=== PATIENT | male | born 1975 | race Caucasian/White ===

== ENCOUNTER → 2018-01-01 | Outpatient (CLI) | payer BC ==
--- NOTE | 2018-01-01 12:11 | US ---
EXAMINATION TYPE: US venous doppler duplex LE LT DATE OF EXAM: 01/01/2018 11:54 AM COMPARISON: US dated 11/01/2017 CLINICAL HISTORY: R60.0 edema of calf. SIDE PERFORMED: Left TECHNIQUE: The lower extremity deep venous system is examined utilizing real time linear array sonog angela with graded compression, doppler sonography and color-flow sonography. VESSELS IMAGED: External Iliac Vein (EIV) Common Femoral Vein Deep Femoral Vein Greater Saphenous Vein * Femoral Vein Popliteal Vein Proximal Calf Veins (* superficial vessels) Left Leg: Negative for DVT IMPRESSION: 1. Left lower extremity ultrasound negative for deep venous thrombosis
== END | disposition home or self-care (01) ==
LOC: RADUSWWP 11:22
PROVIDERS: ATTEND Family Medicine
DX: R60.0 Localized edema (principal)

== ENCOUNTER 2021-04-04 09:37 | Day surgery (SDC) | payer BC, OTHER ==
[2021-04-03 10:56] VITALS: BMI 29.1
[~2021-04-04 09:37] MED LIST: LACTATED RINGERS 1,000 ML IV SCH; LIDOCAINE 1% (10MG/ML) FOR IV START INTRADERMA PRN
[2021-04-04] MEDS ORDERED: ONDANSETRON 4 MG/2 ML VIAL ONE (09:58)
[2021-04-04 10:00] VITALS: RESP 16; TEMP 97.6
[2021-04-04] MEDS ORDERED: PROPOFOL 10 MG/ML 20 ML VIAL IV ONE (10:15)
--- NOTE | 2021-04-04 10:45 | P.PCN ---
Date of Procedure: 04/04/21 Description of Procedure: BRIEF HISTORY: Patient is a 46-year-old male presenting for outpatient colonoscopy for history of colon polyps. Patient reports last colonoscopy approximately 10 years ago. No change in bowel habits or blood per rectum. Unknown family history is a patient was adopted. PROCEDURE PERFORMED: Colonoscopy with polypectomy. PREOPERATIVE DIAGNOSIS: History of colon polyps, last colonoscopy 10 years ago. ESTIMATED BLOOD LOSS: Minimal. IV sedation per Anesthesia. PROCEDURE: After informed consent was obtained, the patient, was brought into the endoscopy unit. IV sedation was administered by Anesthesia under continuous monitoring. Digital rectal examination was normal. Initially the Olympus CF-190 flexible video colonoscope was then inserted in the rectum, gradually advanced into the cecum without any difficulty. Careful examination was performed as the scope was gradually being withdrawn. Ileocecal valve and the appendiceal orifice were visualized and appeared normal. Prep was excellent. Mucosa of the cecum, ascending colon, transverse colon, descending colon, sigmoid colon, and rectum appeared normal. 2 diminutive polyps removed with cold forcep polypectomy measuring 1-2 mm in size from the descending colon and sigmoid colon. Sessile rectal polyp measuring 4 mm removed with cold snare polypectomy. Retroflexion was performed in the rectum and no lesions were seen. The patient tolerated the procedure well. IMPRESSION: 2 diminutive polyps removed with cold forcep polypectomy from the descending colon and sigmoid colon. Sessile rectal polyp removed with cold snare polypectomy. RECOMMENDATIONS: Findings of this examination were discussed with the patient and his family. Okay to resume diet. Okay to resume medications. Await pathology from polypectomy. Recommend repeat colonoscopy in 5 years given history of colon polyps and polypectomy pending pathology from polypectomies.
[2021-04-04 11:00] VITALS: BP 116/81; PULSE 87
== END 2021-04-04 11:12 | disposition home or self-care (01) ==
LOC: ORWHC2ENDO 09:37
PROVIDERS: ATTEND Internal Medicine
DX: D12.4 Benign neoplasm of descending colon (principal); D12.5 Benign neoplasm of sigmoid colon; K62.1 Rectal polyp; F17.200 Nicotine dependence, unspecified, uncomplicated; Z87.19 Personal history of other diseases of the digestive system
CPT/HCPCS: 88305; 45380; 45385; J2405; J2704

== ENCOUNTER → 2022-10-13 | Outpatient (CLI) | payer BC ==
--- NOTE | 2022-10-14 14:05 | MR ---
EXAMINATION TYPE: MR lumbar spine wo con DATE OF EXAM: 10/13/2022 5:05 PM COMPARISON: Spine radiographs 08/11/2022. CLINICAL INDICATION:Male, 47 years old with history of M47.26 SPONDYLOSIS WITH RADICULOPATHY, LUMBAR JULY; TECHNIQUE: Multi planar, multi sequence imaging was performed utilizing: T1-weighted, T2-weighted, a nd turbo inversion recovery imaging of the lumbar spine. IV Contrast:. None. FINDINGS: Alignment: The lumbar vertebral bodies have preserved heights and alignment. Cord: The conus medullaris and the distal spinal cord appear unremarkable with regards to their signa l intensity and morphology. Bones/Discs: Mild disc degeneration changes with osteophyte formation. L4-L5 disc desiccation is pres ent. Increased inversion recovery signal is seen within the right L4 and L5 pedicles. T12-L1: No evidence of significant spinal canal stenosis or neural foraminal stenosis. L1-L2: No evidence of significant spinal canal stenosis or neural foraminal stenosis. L2-L3: No evidence of significant spinal canal stenosis or neural foraminal stenosis. L3-L4: No evidence of significant spinal canal stenosis or neural foraminal stenosis. L4-L5: Disc bulge and facet joint arthropathy result in mild spinal canal and moderate bilateral neur al foraminal stenosis. L5-S1: The disc is rounded posterior morphology without significant spinal canal stenosis. Facet join t arthropathy with mild neural foraminal stenosis. Other findings: None. IMPRESSION: 1. No definitive evidence of disc herniation or significant spinal canal stenosis. 2. Multilevel disc degeneration with associated osteoarthritic changes is L4-L5 with moderate bilate ral neural foraminal stenosis. 3. Stress reaction/bony edema of the right L4-L5 pedicles. No evidence of fracture.
== END | disposition home or self-care (01) ==
LOC: RADMRIMAIN 16:37
PROVIDERS: ATTEND Nurse Practitioner Family
DX: M51.16 Intervertebral disc disorders with radiculopathy, lumbar region (principal); M47.26 Other spondylosis with radiculopathy, lumbar region; M99.73 Connective tissue and disc stenosis of intervertebral foramina of lumbar region; R60.0 Localized edema; F43.9 Reaction to severe stress, unspecified
CPT/HCPCS: 72148

== ENCOUNTER 2022-12-11 07:03 | Day surgery (SDC) | payer BC ==
[2022-12-09 08:45] VITALS: BMI 29.1
[2022-12-11] MEDS ORDERED: LACTATED RINGERS 1,000 ML IV ONE (07:30)
[2022-12-11 07:32] VITALS: RESP 16; TEMP 97
[2022-12-11] MEDS ORDERED: MIDAZOLAM 2 MG/2 ML VIAL ONE (07:34)
[2022-12-11] MEDS ORDERED: methylPREDNISolone ACETATE 80 MG/ML 1 ML VIAL ONE (07:34)
[2022-12-11] MEDS ORDERED: IOPAMIDOL M200 10 ML VIAL ONE (07:34)
[2022-12-11] MEDS ORDERED: fentaNYL (PF) 50 MCG/ML 2 ML AMP ONE (07:34)
--- NOTE | 2022-12-11 07:43 | P.PCN ---
Date of Procedure: 12/11/22 Procedure(s) Performed: PREOPERATIVE DIAGNOSIS: 1- Lumbar Degenerative Disc Diseases 2-lumbar spinal stenosis POSTOPERATIVE DIAGNOSIS: Same as preop diagnosis. PROCEDURE 1. Lumbar epidural steroid injection under fluoroscopic guidance at the L4-5 level. (Fluoroscopy imaging was available in radiology department) 2. Lumbar epidurogram. ANESTHESIA: moderate sedation with intravenous Versed 2 mg ,and fentanyle 100 Mcg Sedation start time : 737 Sedation end time : 741 EBL: Minimal PROCEDURE INDICATION: The patient with low back pain and radiculitis symptoms unresponsive to conservative treatment. Fluoroscopy was used to optimize visualization of the needle placement and to maximize safety. PROCEDURE DESCRIPTION / TECHNIQUE: The patient was seen and identified in the preoperative area. Risks, benefits, complications including but not limited to infections ,bleeding ,allergic reaction to the medications ,nerve damage and not complete pain releife , and alternatives were discussed with the patient. The patient agreed to proceed with the procedure and signed the consent. IV was started, and vital signs were stable. Patient was taken to the OR and time out was completed. The patient was placed in the prone position on procedure table and a pillow was placed under the abdomen to reduce lumbar lordosis. The lumbosacral area was prepped and draped in the usual sterile fashion.ere closely monitored during the procedure. Conscious sedation was used during the procedure to decrease patients anxiety. Vital signs was monitered during the entire procedure. Using anterior-posterior fluoroscopy, the L4-5 interlaminar space was identified and the skin over this site was marked and then infiltrated with 1% lidocaine subcutaneously. Subsequently, a 20-gauge Tuohy epidural needle was inserted and advanced toward the epidural space using the ``Loss of resistance technique and guided by AP and lateral fluoroscopy. The correct needle position in the epidural space was verified with the injection of 2 mL of the water soluble contrast dye Isovue 200 contrast and observing an excellent epidurogram with the epidural spread of the dye, after negative aspiration for blood and CSF and in the absence of paresthesias. Again after negative aspiration, a 6 ml mixture containing 80 mg of Depo-medrol ( Preservetive Free ), and 2 ml of preservative free Normal Saline, and 2 ml of preservative free lidocaine 1% solution was injected and a washout of epidurogram was seen. Needle was withdrawn intact, skin was cleansed, and bandages were applied. COMPLICATIONS: None DISPOSITION / PLANS: The patient was placed in a supine position and transferred to the recovery area in a stable condition for observation. There was no evidence of lower extremity motor or sensory deficit after the procedure. Patient was discharged from the recovery room after meeting discharge criteria. Home discharge instructions were given to the patient by the staff. The patient was reexamined prior to discharge. The patient will schedule a follow up in the clinic in 2-4 weeks.
[2022-12-11] MEDS ORDERED: IV FLUID CONTINUATION 1,000 ML IV ONE (07:47)
[2022-12-11 08:15] VITALS: BP 100/68; PULSE 86
--- NOTE | 2022-12-11 08:19 | FL ---
Intraoperative/procedural fluoroscopic services were provided. Total fluoroscopy time is 1.7 seconds with a total of 1 submitted images to PACS. Please see the operative/procedural note for further deta ils. DAP: [id number]
== END 2022-12-11 08:16 | disposition home or self-care (01) ==
LOC: ORPAIN 07:03
PROVIDERS: ATTEND Specialist
DX: M51.16 Intervertebral disc disorders with radiculopathy, lumbar region (principal); M48.061 Spinal stenosis, lumbar region without neurogenic claudication; Z88.8 Allergy status to other drugs, medicaments and biological substances
CPT/HCPCS: 62323; J2250; J1040; J3010; Q9966

== ENCOUNTER → 2023-01-05 | Outpatient (CLI) | payer BC ==
[2023-01-05 14:56] VITALS: BP 144/87; PULSE 87; RESP 18; TEMP 98.7
--- NOTE | 2023-01-05 16:30 | P.PAINPG ---
PQRS Measure Charge Sheet Comment: A 47 yr old male with a history of severe and chronic LBP secondary to lumbar DDD and spondylosis with facet arthropathy without myelopathy presents today for evaluation s/p LESI. 90% pain relief x 2 wks s/p procedure. Pain level is provoked at 7 /10 in intensity, constant, localized in the lumbar spine, sharp in character w shooting towards . Pain is provoked by over activity Pain is alleviated with PT x 6 wks in Sep 2022, injections, laying supine, repositioning and rest. Interventional pain procedures completed include DIONNE L4-L5 Patient is currently on DENIES Patient denies any side effects of the medication(s), denies excessive drowsiness or sleepiness, denies suicidal ideation and reports that the current pain medication is helping to control the pain and improve activities of daily living. Patient denies any motor or sensory deficits. Patient denies any fever or night sweats, denies any change in the bowel movements or urination. Physical Examination: -Constitutional: Cooperative. Not in acute distress . - Neurologic: Cranial nerve II to XII intact. No focal neurological deficits. - Psychatric: Alert & oriented x 3. Matching mood & appropriate affect. Judgment and insight intact. - Musculoskeletal: Cervical spine: Muscle bulk/ tone/ strength in the bilateral upper extremities normal Vertebral body tenderness to palpation over Spurling test positive Distraction test positive Facet loading test positive TTP Thoracic spine Muscle bulk / tone/ strength in the bilateral paraspinal muscles normal Vertebral body tender to palpation over Facet loading test positive TTP Lumbar spine: Motor bulk/ tone/ strength lower extremities , thigh and legs : 5/5 Deep tendon reflexes : Normal Knee Jerk. Normal Ankle Jerk . Vertebral body tenderness to palpation over L5 Lumbar Facet Loading Test positive Straight Leg Raise: positive at 30 degrees right side/ left side Gaenslen's Test positive Sacral spine : Severe tenderness over the Sacroiliac joint: right side / left side Range of motion: Flexion of the lumbar spine <60 degrees Range of motion: Extension of the lumbar spine <20 degrees Gaenslen's Test positive right side / left side Dao test: positive right side / left side Thigh Thrust Test positive right side / left side Sacral Thrust Test positive right side / left side Assessment and plan: Chronic LBP secondary to lumbar DDD, spondylosis with facet arthropathy without myelopathy Recommendation of R paramedian DIONNE L5-S1 #2. May need a series of injections for optimal pain relief. Risks, benefits of procedure discussed and pt verbalized understanding. Admits to anticoagulant use or medical history of diabetes. Protocol for discontinuation/ continuation of medications pauline procedure discussed. All questions answered. I have spent less than 30 minutes on patient care today. Dr Flores was available by phone for the evaluation of this patient. The time was used to rev iew the medical records including relevant urine studies and Prescription history (MAPs), review of the available imaging, evaluation and examination of the patient, coordination of care with the medical staff and if applicable referring physicians, as well as creation of the medical record PQRS Narrative: Smoking Status Current every day smoker Hx Alcohol Use (MH) Yes: Social Home Medications: Ambulatory Orders No Known Home Medications 12/09/22 Controlled Substance Measures - Controlled Substance Measures Is patient prescribed a controlled substance at discharge?: No
== END ==
LOC: PNWHC3 14:16
PROVIDERS: ATTEND Specialist
DX: M51.36 Other intervertebral disc degeneration, lumbar region (principal); M47.816 Spondylosis without myelopathy or radiculopathy, lumbar region; G89.29 Other chronic pain; F17.200 Nicotine dependence, unspecified, uncomplicated; Z88.8 Allergy status to other drugs, medicaments and biological substances
CPT/HCPCS: 99211

== ENCOUNTER 2023-01-27 07:03 | Day surgery (SDC) | payer BC ==
[2023-01-23 11:30] VITALS: BMI 29.1
[2023-01-27 07:15] VITALS: TEMP 97.7
[2023-01-27] MEDS: LACTATED RINGERS 1,000 ML IV SCH ×2 (07:29→07:30)
[2023-01-27] MEDS ORDERED: IOPAMIDOL M200 10 ML VIAL ONE (07:31)
[2023-01-27] MEDS ORDERED: fentaNYL (PF) 50 MCG/ML 2 ML AMP ONE (07:31)
[2023-01-27] MEDS ORDERED: MIDAZOLAM 2 MG/2 ML VIAL ONE (07:31)
[2023-01-27] MEDS ORDERED: methylPREDNISolone ACETATE 40 MG/ML 1 ML VIAL ONE (07:31)
--- NOTE | 2023-01-27 07:38 | P.PCN ---
Date of Procedure: 01/27/23 Operative Findings: PREOPERATIVE DIAGNOSIS: lumbar radiculopathy POSTOPERATIVE DIAGNOSIS: Lumbar radiculopathy PROCEDURE 1. Lumbar epidural steroid injection under fluoroscopic guidance at the 5/1 level. 2. Lumbar epidurogram. Imaging: Fluoroscopy was used, images where saved to the medical record ANESTHESIA: Medication Administered by: Nurse Sedation Type: Moderate sedation Sedation Supervision start time: 731 Sedation Supervision end time: 736 EBL: Minimal PROCEDURE INDICATION: The patient with low back pain and radiculitis symptoms unresponsive to conservative treatment. Fluoroscopy was used to optimize visualization of the needle placement and to maximize safety. PROCEDURE DESCRIPTION / TECHNIQUE: The patient was seen and identified in the preoperative area. Risks, benefits, complications including but not limited to infections, bleeding, allergic reaction to medications, nerve damage and incomplete pain relief, as well as alternatives to the procedure were discussed with the patient. The patient agreed to proceed with the procedure and signed the consent. IV was started if indicated above, and vital signs were stable. Patient was taken to the OR and time out was completed. The patient was placed in the prone position on procedure table and a pillow was placed under the abdomen to reduce lumbar lordosis. The lumbosacral area was prepped and draped in the usual sterile fashion. Vitals were closely monitored during the procedure. Using anterior-posterior fluoroscopy, the 5/1 interlaminar space was identified and the skin over this site was marked and then infiltrated with 1% lidocaine subcutaneously. Subsequently, a 20-gauge Tuohy epidural needle was inserted and advanced toward the epidural space using the Loss of resistance technique and guided by AP and lateral fluoroscopy. The correct needle position in the epidural space was verified with the injection of 1 mL of Omnipaque 180 contrast to observe an acceptable epidurogram, after negative aspiration for blood and CSF and in the absence of paresthesias. Again after negative aspiration, a 3 ml mixture containing 40mg of depomedrol and 2 ml of preser vative free Normal Saline was injected and a washout of epidurogram was seen. Needle was withdrawn intact, skin was cleansed, and bandages were applied. COMPLICATIONS: None DISPOSITION / PLANS: The patient was placed in a supine position and transferred to the recovery area in a stable condition for observation. There was no evidence of lower extremity motor or sensory deficit after the procedure. Patient was discharged from the recovery room after meeting discharge criteria. Home discharge instructions were given to the patient by the staff. The patient was reexamined prior to discharge. The patient will follow up as directed.
[2023-01-27] MEDS ORDERED: IV FLUID CONTINUATION 800 ML IV ONE (07:41)
[2023-01-27 07:49] VITALS: RESP 16
[2023-01-27 08:27] VITALS: BP 104/57; PULSE 84
--- NOTE | 2023-01-27 08:27 | FL ---
EXAMINATION TYPE: FL guided pain mgmt statistic DATE OF EXAM: 01/27/2023 HISTORY: Fluoroscopy time Total dose area product (DAP) in mGy*cm? (or similar): 0.33563 IMPRESSION: 1. Fluoroscopy time.
== END 2023-01-27 08:35 | disposition home or self-care (01) ==
LOC: ORPAIN 07:03
PROVIDERS: ATTEND Hospitalist
DX: M54.16 Radiculopathy, lumbar region (principal)
CPT/HCPCS: 62323; J2250; J1030; J3010; Q9966

== ENCOUNTER → 2023-02-18 | Outpatient (CLI) | payer BC ==
[2023-02-18 14:31] VITALS: BP 110/79; PULSE 92; RESP 18; TEMP 98
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
== END ==
LOC: PNWHC3 14:01
PROVIDERS: ATTEND Specialist
DX: M51.37 Other intervertebral disc degeneration, lumbosacral region (principal); M47.817 Spondylosis without myelopathy or radiculopathy, lumbosacral region; G89.29 Other chronic pain; F17.200 Nicotine dependence, unspecified, uncomplicated; Z88.8 Allergy status to other drugs, medicaments and biological substances
CPT/HCPCS: 99211

== ENCOUNTER 2023-03-19 06:26 | Day surgery (SDC) | payer BC ==
[2023-03-16 08:20] VITALS: BMI 29.1
[2023-03-19] MEDS ORDERED: LACTATED RINGERS 1,000 ML IV SCH (06:57)
[2023-03-19 07:05] VITALS: TEMP 96.9
--- NOTE | 2023-03-19 07:33 | P.PCN ---
Date of Procedure: 03/19/23 Procedure(s) Performed: PREOPERATIVE DIAGNOSIS: 1- Lumbar Degenerative Disc Diseases 2-lumbar spinal stenosis POSTOPERATIVE DIAGNOSIS: Same as preop diagnosis. PROCEDURE 1. Lumbar epidural steroid injection under fluoroscopic guidance at the L4-5 level. (Fluoroscopy imaging was available in radiology department) 2. Lumbar epidurogram. ANESTHESIA: Local anesthesia with lidocaine 1% 3 mL only EBL: Minimal PROCEDURE INDICATION: The patient with low back pain and radiculitis symptoms unresponsive to conservative treatment. Fluoroscopy was used to optimize visualization of the needle placement and to maximize safety. PROCEDURE DESCRIPTION / TECHNIQUE: The patient was seen and identified in the preoperative area. Risks, benefits, complications including but not limited to infections ,bleeding ,allergic reaction to the medications ,nerve damage and not complete pain releife , and alternatives were discussed with the patient. The patient agreed to proceed with the procedure and signed the consent. IV was started, and vital signs were stable. Patient was taken to the OR and time out was completed. The patient was placed in the prone position on procedure table and a pillow was placed under the abdomen to reduce lumbar lordosis. The lumbosacral area was prepped and draped in the usual sterile fashion.ere closely monitored during the procedure.. Vital signs was monitered during the entire procedure. Using anterior-posterior fluoroscopy, the L4-5 interlaminar space was identified and the skin over this site was marked and then infiltrated with 1% lidocaine subcutaneously. Subsequently, a 20-gauge Tuohy epidural needle was inserted and advanced toward the epidural space using the ``Loss of resistance technique and guided by AP and lateral fluoroscopy. The correct needle position in the epidural space was verified with the injection of 2 mL of the water soluble contrast dye Isovue 200 contrast and observing an excellent epidurogram with the epidural spread of the dye, after negative aspiration for blood and CSF and in the absence of paresthesias. Again after negative aspiration, a 6 ml mixture containing 80 mg of Depo-medrol ( Preservetive Free ), and 2 ml of preservative free Normal Saline, and 2 ml of preservative free lidocaine 1% solution was injected and a washout of epidurogram was seen. Needle was withdrawn intact, skin was cleansed, and bandages were applied. COMPLICATIONS: None DISPOSITION / PLANS: The patient was placed in a supine position and transferred to the recovery area in a stable condition for observation. There was no evidence of lower extremity motor or sensory deficit after the procedure. Patient was discharged from the recovery room after meeting discharge criteria. Home discharge instructions were given to the patient by the staff. The patient was reexamined prior to discharge. The patient will schedule a follow up in the clinic in 2-4 weeks.
[2023-03-19 07:40] VITALS: RESP 16
[2023-03-19 08:00] VITALS: BP 114/77; PULSE 74
--- NOTE | 2023-03-19 08:40 | FL ---
EXAMINATION TYPE: FL guided pain mgmt statistic DATE OF EXAM: 03/19/2023 HISTORY: Fluoroscopy time Total dose area product (DAP) in uGy*m?, mGy*cm? (or similar): 0.01576 IMPRESSION: 1. Fluoroscopy time.
[2023-03-19] MEDS ORDERED: IOPAMIDOL M200 10 ML VIAL ONE (17:27)
[2023-03-19] MEDS ORDERED: methylPREDNISolone ACETATE 80 MG/ML 1 ML VIAL ONE (17:27)
== END 2023-03-19 08:05 | disposition home or self-care (01) ==
LOC: ORPAIN 06:26
PROVIDERS: ATTEND Specialist
DX: M51.16 Intervertebral disc disorders with radiculopathy, lumbar region (principal); M48.061 Spinal stenosis, lumbar region without neurogenic claudication; Z88.8 Allergy status to other drugs, medicaments and biological substances
CPT/HCPCS: 62323; J1040; Q9966

== ENCOUNTER → 2023-04-15 | Outpatient (CLI) | payer BC ==
[2023-04-15 14:21] VITALS: BP 161/99; PULSE 78; RESP 14; TEMP 98.1
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
== END ==
LOC: PNWHC3 13:42
PROVIDERS: ATTEND Specialist
DX: M51.37 Other intervertebral disc degeneration, lumbosacral region (principal); M47.817 Spondylosis without myelopathy or radiculopathy, lumbosacral region; F17.200 Nicotine dependence, unspecified, uncomplicated; G89.29 Other chronic pain; Z88.8 Allergy status to other drugs, medicaments and biological substances
CPT/HCPCS: 99211

== ENCOUNTER 2023-04-28 06:34 | Day surgery (SDC) | payer BC ==
[2023-04-23 09:34] VITALS: BMI 29.1
[2023-04-28 06:55] VITALS: TEMP 97.9
[2023-04-28] MEDS ORDERED: ROPIVACAINE 5 MG/ML 20 ML AMPULE ONE (07:12)
[2023-04-28] MEDS ORDERED: fentaNYL (PF) 50 MCG/ML 2 ML AMP ONE (07:12)
[2023-04-28] MEDS ORDERED: methylPREDNISolone ACETATE 40 MG/ML 1 ML VIAL ONE (07:12)
[2023-04-28] MEDS ORDERED: MIDAZOLAM 2 MG/2 ML VIAL ONE (07:12)
--- NOTE | 2023-04-28 07:26 | P.PCN ---
Date of Procedure: 04/28/23 Procedure(s) Performed: PREOPERATIVE DIAGNOSIS : 1- Lumbar spondylosis with Facet Arthropathy without myelopathy . 2- Lumber degenerative disc disease POSTOPERATIVE DIAGNOSIS: 1- Lumbar spondylosis with Facet Arthropathy without myelopathy . 2- Lumber degenerative disc disease PROCEDURE: Diagnostic bilateral L3 , L4 , and L5 medial branch block under fluoroscopy guidance(fluoroscopy images available in the radiology Department ) ( To target the facet joint between Bilateral L4-5 , and L5-S1 )#1st ANESTHESIA:moderate sedation with intravenous Versed 2 mg and Fentanyl 50 mcg. Sedation started 0 712, end at 0724 EBL: Minimal COMPLICATION: None PROCEDURE INDICATION: Chronic low back pain secondary to Facet arthropathy unresponsive to conservative treatment. PROCEDURE DESCRIPTION: the patient was seen and identified in the preop holding area , risks and benefits and possible complications of the procedure and alternative were discussed with the patient, and the patient agreed to proceed with the procedure and signed the consent and vital signs monitored during the procedure and fluoroscopy was used to maximize the benefit and accuracy of the needle placement, and sedation was given to decrease patient anxiety, patient was taken to the procedure room and placed in prone position vital signs monitored in the back prepped with chlorhexidine X3 then under strict sterile technique using a right oblique fluoroscopy ,the junction of the transverse process and the superior articulating process of the right L3 , L4 , and L5 vertebra which corresponding to the fluoroscopy image of the eye of the Thor dog on the block side for the medial branches and subsequently , after local infiltration of skin and subcu tissuies with Ropivacaine 0.5 % , one mL at each level ,then 22-gauge Quincke-type needles , 3 needle was used , each one of them placed at the junction of the base of the transverse process and the superior articular process at the appropriate level, and the needle was advanced until the periosteum contacted, needle placement confirmed with AP oblique and lateral view and after appropriate needle placement confirmed, and after negati ve aspiration for heme and CSF and there was no paresthesia 1-1/2 mL of Ropivacaine 0.5% mixed with 20 mg Depo-Medrol , then half mL injected at each level after negative aspiration the needle subsequently removed and the same procedure repeated for the left side at left side at L3 , L4 and L5 levels. At the end of the procedure and the needles removed and a bandage applied after the skin was cleaned the cleaning solution patient taken to recovery room in stable condition and monitors in the recovery room for 20-30 minutes and discharged home in stable condition after discharge criteria met and patient will follow up with the pain clinic in 2-4 weeks
[2023-04-28] MEDS ORDERED: IV FLUID CONTINUATION 1,000 ML IV ONE ×2 (07:29)
[2023-04-28 07:33] VITALS: RESP 16
[2023-04-28 07:45] VITALS: BP 96/69; PULSE 77
--- NOTE | 2023-04-28 16:31 | FL ---
Intraoperative/procedural fluoroscopic services were provided for bilateral lumbar facet block. Total fluoroscopy time is 10.3 seconds with a total of 4 submitted images to PACS. Total DAP 0.38915 mGym2 . Please see the operative note for further details.
== END 2023-04-28 08:05 | disposition home or self-care (01) ==
LOC: ORPAIN 06:34
PROVIDERS: ATTEND Specialist
DX: M51.36 Other intervertebral disc degeneration, lumbar region (principal); M47.816 Spondylosis without myelopathy or radiculopathy, lumbar region; G89.29 Other chronic pain
CPT/HCPCS: 64493; 64494 ×2; J2250; J1030; J3010; J2795

== ENCOUNTER → 2023-05-21 | Outpatient (CLI) | payer BC ==
[2023-05-21 14:33] VITALS: BP 135/83; PULSE 81; RESP 16; TEMP 98.4
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
== END ==
LOC: PNWHC3 13:43
PROVIDERS: ATTEND Specialist
DX: M51.37 Other intervertebral disc degeneration, lumbosacral region (principal); M47.817 Spondylosis without myelopathy or radiculopathy, lumbosacral region; G89.29 Other chronic pain; F17.200 Nicotine dependence, unspecified, uncomplicated; Z88.8 Allergy status to other drugs, medicaments and biological substances
CPT/HCPCS: 99211

== ENCOUNTER 2023-06-05 08:58 | Day surgery (SDC) | payer BC ==
[2023-06-04 11:39] VITALS: BMI 28.0
[2023-06-05] MEDS ORDERED: LACTATED RINGERS 1,000 ML IV SCH (09:18)
[2023-06-05 09:25] VITALS: TEMP 97
[2023-06-05] MEDS ORDERED: fentaNYL (PF) 50 MCG/ML 2 ML AMP ONE (09:26)
[2023-06-05] MEDS ORDERED: MIDAZOLAM 2 MG/2 ML VIAL ONE (09:26)
[2023-06-05] MEDS ORDERED: methylPREDNISolone ACETATE 40 MG/ML 1 ML VIAL ONE (09:31)
[2023-06-05] MEDS ORDERED: ROPIVACAINE 5MG/ML 20ML VIAL ONE (09:31)
--- NOTE | 2023-06-05 09:43 | P.PCN ---
Date of Procedure: 06/05/23 Procedure(s) Performed: PREOPERATIVE DIAGNOSIS : 1- Lumbar spondylosis with Facet Arthropathy without myelopathy . 2- Lumber degenerative disc disease POSTOPERATIVE DIAGNOSIS: 1- Lumbar spondylosis with Facet Arthropathy without myelopathy . 2- Lumber degenerative disc disease PROCEDURE: Diagnostic bilateral L3 , L4 , and L5 medial branch block under fluoroscopy guidance(fluoroscopy images available in the radiology Department ) ( To target the facet joint between Bilateral L4-5 , and L5-S1 )#2nd ANESTHESIA: Monitored anesthesia care as per anesthesia department. EBL: Minimal COMPLICATION: None PROCEDURE INDICATION: Chronic low back pain secondary to Facet arthropathy unresponsive to conservative treatment. PROCEDURE DESCRIPTION: the patient was seen and identified in the preop holding area , risks and benefits and possible complications of the procedure and alternative were discussed with the patient, and the patient agreed to proceed with the procedure and signed the consent and vital signs monitored during the procedure and fluoroscopy was used to maximize the benefit and accuracy of the needle placement, and sedation was given to decrease patient anxiety, patient was taken to the procedure room and placed in prone position vital signs monitored in the back prepped with chlorhexidine X3 then under strict sterile technique using a right oblique fluoroscopy ,the junction of the transverse process and the superior articulating process of the right L3 , L4 , and L5 vertebra which corresponding to the fluoroscopy image of the eye of the Thor dog on the block side for the medial branches and subsequently , after local infiltration of skin and subcu tissuies with Ropivacaine 0.5 % , one mL at each level ,then 22-gauge Quincke-type needles , 3 needle was used , each one of them placed at the junction of the base of the transverse process and the superior articular process at the appropriate level, and the needle was advanced until the periosteum contacted, needle placement confirmed with AP oblique and lateral view and after appropriate needle placement confirmed, and after negative aspiration for heme and CSF and there was no paresthesia 1-1/2 mL of Ropivacaine 0.5% mixed with 20 mg Depo-Medrol , then half mL injected at each level after negative aspiration the needle subsequently removed and the same procedure repeated for the left side at left side at L3 , L4 and L5 levels. At the end of the procedure and the needles removed and a bandage applied after the skin was cleaned the cleaning solution patient taken to recovery room in stable condition and monitors in the recovery room for 20-30 minutes and discharged home in stable condition after discharge criteria met and patient will follow up with the pain clinic in 2-4 weeks
[2023-06-05] MEDS ORDERED: LACTATED RINGERS 1,000 ML IV ONE (09:45)
[2023-06-05 09:56] VITALS: RESP 17
[2023-06-05 10:09] VITALS: BP 108/73; PULSE 78
--- NOTE | 2023-06-05 10:25 | FL ---
Intraoperative/procedural fluoroscopic services were provided for bilateral lumbar facet block. Total fluoroscopy time is 9.1 seconds with a total of 4 submitted images to PACS. Total DAP 0.39783 mGym2. Please see the operative note for further details.
== END 2023-06-05 10:15 | disposition home or self-care (01) ==
LOC: ORPAIN 08:58
PROVIDERS: ATTEND Specialist
DX: M51.36 Other intervertebral disc degeneration, lumbar region (principal); M47.816 Spondylosis without myelopathy or radiculopathy, lumbar region; G89.29 Other chronic pain; Z87.891 Personal history of nicotine dependence
CPT/HCPCS: 64493; 64494 ×2; J2250; J1030; J3010; J2795

== ENCOUNTER 2023-07-17 06:11 | Day surgery (SDC) | payer BC ==
[2023-07-15 11:05] VITALS: BMI 29.1
[2023-07-17] MEDS ORDERED: LIDOCAINE 1% (10MG/ML) FOR IV START INTRADERMA PRN (06:19)
[2023-07-17] MEDS ORDERED: LACTATED RINGERS 1,000 ML IV SCH ×2 (06:19)
[2023-07-17 06:48] VITALS: TEMP 96.9
[2023-07-17] MEDS ORDERED: MIDAZOLAM 2 MG/2 ML VIAL ONE (07:03)
[2023-07-17] MEDS ORDERED: TRIAMCINOLONE ACETONIDE 40 MG/ML 1 ML VIAL ONE (07:03)
[2023-07-17] MEDS ORDERED: ROPIVACAINE 5MG/ML 20ML VIAL ONE (07:03)
[2023-07-17] MEDS ORDERED: fentaNYL (PF) 50 MCG/ML 2 ML AMP ONE (07:03)
[2023-07-17] MEDS ORDERED: IV FLUID CONTINUATION 800 ML IV ONE (07:36)
--- NOTE | 2023-07-17 07:39 | P.PCN ---
Date of Procedure: 07/17/23 Surgeon: Jana Valdez Pathology: none sent Condition: stable Disposition: PACU Description of Procedure: PREOPERATIVE DIAGNOSIS: Lumbar spondylosis without myelopathy POSTOPERATIVE DIAGNOSIS: Lumbar spondylosis without myelopathy PROCEDURES : Bilateral Radiofrequency thermocoagulation L4-L5, and L5-S1 medial branch, with fluoroscopic guidance ANESTHESIA: Local with lidocaine 1% using 25-gauge needle and IV moderate conscious sedation by the anesthesia Department Physician: Jana Valdez MD EBL: Minimal PROCEDURE INDICATION: The patient with low back pain secondary to lumbar facet arthropathy who had significant relief of pain with previous diagnostic lumbar medial branch block with Ropivacaine0.5%. PROCEDURE DESCRIPTION / TECHNIQUE: The patient was seen and identified in the preoperative area. Risks, benefits, complications, including but not limited to risk of infection ,bleeding , allergic reactions to the medications and no complete pain relief , and alternatives were discussed with the patient, the patient agreed to proceed with the procedure and signed the consent. IV was started. Vital signs remained stable throughout the procedure. Patient was taken to the OR and time out was completed. The patient was placed in the prone position on the procedure table. The lumber area was prepped and draped in the usual sterile fashion. . Vital signs were closely monitored during the procedure .IV sedation was used during the procedure to decrease patients anxiety. The target points were identified as follows: For the L5-S1 level which corresponds to the dorsal ramus of L5 the target point was at the superior medial aspect of the sacral ala on the Rt side of the spine on the AP view of fluoroscopy and for the L3, and L4 medial branches the target points were at t he connection between the transverse process and the superior articular process of L4, and L5 vertebra respectively on the Rt oblique view of fluoroscopy. skin was marked, and localized with 1% lidocaineat these points. Subsequently, an [id number] radiofrequency needles with a 10-mm curved active tips were advanced guided by fluoroscopy to each of the target points mentioned above in a superior medial direction to get the active tips as parallel as possible to the medial branches tracks. AP, oblique, and lateral views of fluoroscopy were used to verify needle tips position. Each level then underwent motor testing at 2.5 Hz and 0 to 3 volt with local stimulation, but no radicular symptoms down the legs. I then injected 1 mL of lidocaine 1% in each needle before starting radiofrequency thermocoagulation at 80 degrees celsius for 90 seconds. After that I injected 1 ml of PF Ropivacaine 0.5%(3 mls) with 40 mg of Kenalog, 1 mL of this mixture was given in each needle before taking the needles out intact. Then the left side with the same levels was done in the same manner. At the end of the procedure, the skin was cleansed and bandages were applied. A copy of needle placement fluoroscopy was saved on the C-arm machine. COMPLICATIONS: No acute complications. DISPOSITION / PLANS: The patient was placed in a supine position and transferred to the recovery area in a stable condition for observation and was discharged from the recovery room after meeting discharge criteria. Home discharge instructions given to the patient by the staff. The patient was reexamined prior to discharge. The patient will schedule a follow up in the clinic in 2-4 weeks.
[2023-07-17 07:45] VITALS: PULSE 85
[2023-07-17 08:04] VITALS: BP 98/69; RESP 16
--- NOTE | 2023-07-17 08:30 | FL ---
EXAMINATION TYPE: FL guided pain mgmt statistic DATE OF EXAM: 07/17/2023 HISTORY: Fluoroscopy time Total dose area product (DAP) in uGy*m?, mGy*cm? (or similar): 0.81311 IMPRESSION: 1. Fluoroscopy time.
== END 2023-07-17 08:05 | disposition home or self-care (01) ==
LOC: ORPAIN 06:11
PROVIDERS: ATTEND Anesthesiology
DX: M47.816 Spondylosis without myelopathy or radiculopathy, lumbar region (principal); F17.200 Nicotine dependence, unspecified, uncomplicated; G89.29 Other chronic pain; Z79.899 Other long term (current) drug therapy
CPT/HCPCS: 64636 ×2; 64635; J2250; J3301; J3010; J2795

== ENCOUNTER → 2023-08-13 | Outpatient (CLI) | payer BC ==
[2023-08-13 14:36] VITALS: BP 142/76; PULSE 75; RESP 15; TEMP 982
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
== END ==
LOC: PNWHC3 13:44
PROVIDERS: ATTEND Specialist
DX: M51.37 Other intervertebral disc degeneration, lumbosacral region (principal); M47.817 Spondylosis without myelopathy or radiculopathy, lumbosacral region; G89.29 Other chronic pain; F17.200 Nicotine dependence, unspecified, uncomplicated; Z88.8 Allergy status to other drugs, medicaments and biological substances
CPT/HCPCS: 99211

== ENCOUNTER → 2023-10-08 | Outpatient (CLI) | payer BC ==
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
[2023-10-08 14:51] VITALS: BP 129/82; PULSE 76; RESP 15; TEMP 98.6
== END ==
LOC: PNWHC3 14:01
PROVIDERS: ATTEND Specialist
DX: M47.816 Spondylosis without myelopathy or radiculopathy, lumbar region (principal); M51.36 Other intervertebral disc degeneration, lumbar region; F17.200 Nicotine dependence, unspecified, uncomplicated; Z88.8 Allergy status to other drugs, medicaments and biological substances
CPT/HCPCS: 99211

== ENCOUNTER → 2024-01-26 | Outpatient (CLI) | payer BC ==
--- NOTE | 2024-01-29 13:43 | MR ---
EXAMINATION TYPE: MR lumbar spine wo con DATE OF EXAM: 01/26/2024 COMPARISON: 10/13/2022 HISTORY: Low back pain that radiates down right leg CONTRAST: 0 mL intravenous Gadavist. TECHNIQUE: Multiplanar, multisequence images of the lumbar spine were acquired. FINDINGS: Cord terminates at the L1 level. Disc desiccation is present L4-5. Maintain normal hydrati on. L5-S1: No significant disc bulge or disc herniation. No spinal canal stenosis. No foraminal stenosi s. L4-L5: There is mild disc flattening disc bulging. No AP spinal canal stenosis present. No spinal ca nal stenosis. No foraminal stenosis. Disc desiccation is present. L3-L4: No significant disc bulge or disc herniation. No spinal canal stenosis. No foraminal stenosi s. L2-L3: No significant disc bulge or disc herniation. No spinal canal stenosis. No foraminal stenosi s. L1-L2: No significant disc bulge or disc herniation. No spinal canal stenosis. No foraminal stenosi s. T12-L1: No significant disc bulge or disc herniation. No spinal canal stenosis. No foraminal stenos is. IMPRESSION: 1. Stable disc desiccation and mild disc bulge L4-5 with anterior thecal sac flattening.
== END | disposition home or self-care (01) ==
LOC: RADMRIMAIN 18:56
PROVIDERS: ATTEND Orthopaedic Surgery
DX: M51.16 Intervertebral disc disorders with radiculopathy, lumbar region (principal)
CPT/HCPCS: 72148

== ENCOUNTER → 2024-02-18 | Outpatient (CLI) | payer BC ==
--- NOTE | 2024-02-18 21:40 | US ---
EXAMINATION TYPE: US thyroid st tissue head/neck DATE OF EXAM: 02/18/2024 COMPARISON: NONE CLINICAL INDICATION: Male, 48 years old with history of R59.0 LOCALIZED ENLARGED LYMPH NODES; right s ided palpable x 1 month, does not hurt TECHNIQUE: Soft tissue scan of left side of neck at palpable FINDINGS/IMPRESSION: Complex cyst versus complex lymph node seen adjacent to parotid gland at area o f palp. 1.6 x 1.9 x 1.1cm in size. This is primarily anechoic in appearance with thin septations and internal color flow identified. Smooth margins demonstrated. Etiologies include a Yelena's tumor chasity hank lymphangioma versus other. Fine-needle aspiration is recommended.
== END | disposition home or self-care (01) ==
LOC: RADUSWWP 15:56
PROVIDERS: ATTEND Family Medicine
DX: R59.0 Localized enlarged lymph nodes (principal)
CPT/HCPCS: 76536

== ENCOUNTER → 2024-03-02 | Outpatient (CLI) | payer BC ==
[2024-03-02 12:55] VITALS: BP 149/94; PULSE 81; RESP 16
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
== END ==
LOC: PNWHC3 11:01
PROVIDERS: ATTEND Specialist
DX: M51.36 Other intervertebral disc degeneration, lumbar region (principal); M47.816 Spondylosis without myelopathy or radiculopathy, lumbar region; F17.200 Nicotine dependence, unspecified, uncomplicated; Z88.8 Allergy status to other drugs, medicaments and biological substances
CPT/HCPCS: 99211

== ENCOUNTER 2024-03-11 08:52 | Day surgery (SDC) | payer BC ==
[2024-03-11] MEDS: ALPRAZolam 0.5 MG TAB PO STA (09:49)
[2024-03-11 10:00] VITALS: RESP 16; TEMP 98.2
[2024-03-11 10:55] VITALS: BP 105/67; PULSE 84
--- NOTE | 2024-03-11 13:17 | US ---
ULTRASOUND GUIDED NECK MASS BIOPSY: CLINICAL HISTORY: Right neck mass or lymph node FINDINGS: The procedure was explained to the patient. The risks, complications, benefits and alternatives were discussed and any questions were answered. Informed consent was obtained. Patient was placed supin e on the ultrasound table and prepped and draped in the usual sterile fashion. Utilizing a 18 gauge needle, the passes were made into the questioned right neck mass. Patient was stable throughout the procedure. Pathology is pending. All elements of maximal barrier technique were utilized. IMPRESSION: 1. Successful ultrasound guided core biopsy right neck mass.
== END 2024-03-11 10:58 | disposition home or self-care (01) ==
LOC: RADPROMAIN 08:52
PROVIDERS: ATTEND Family Medicine
DX: R22.1 Localized swelling, mass and lump, neck (principal)
CPT/HCPCS: 42400; 76942; 88305

== ENCOUNTER 2024-03-17 07:46 | Day surgery (SDC) | payer BC ==
[~2024-03-17 07:46] MED LIST changes: -LIDOCAINE 1% (10MG/ML) FOR IV START INTRADERMA PRN
[2024-03-17 08:15] VITALS: TEMP 97.7
[2024-03-17] MEDS ORDERED: IOPAMIDOL M200 10 ML VIAL ONE (09:45)
[2024-03-17] MEDS ORDERED: DEXAMETHASONE SOD PHOSPHATE 10 MG/ML 1 ML VIAL ONE (09:45)
[2024-03-17] MEDS ORDERED: ROPIVACAINE 5MG/ML 20ML VIAL ONE (09:45)
--- NOTE | 2024-03-17 10:03 | P.PCN ---
Description of Procedure: PREOPERATIVE DIAGNOSIS: 1-Lumbar radiculopathy . 2-lumbar degenerative disc disease. 3-lumbar spondylosis with lumbar facet arthropathy without myelopathy POSTOPERATIVE DIAGNOSIS: 1-lumbar radiculopathy. 2-lumbar degenerative disc disease. 3-lumbar spondylosis with facet arthropathy without myelopathy PROCEDURE 1. Transforaminal epidural steroid injection under fluoroscopic guidance at RIGHT L4-5 level. (Fluoroscopy images stored on file in the radiology Department ) 2. Lumbar epidurogram . ANESTHESIA: Local with 1% lidocaine 5 ml. subcutaneously. Continuous pulse ox, EKG, blood pressure and verbal communication was maintained with the patient. EBL: Minimal PROCEDURE INDICATION: The patient with low back pain and radiculopathy symptoms unresponsive to conservative treatment. The patient was seen and identified in the preoperative area. Risks, benefits, complications, and alternatives were discussed with the patient. The patient agreed to proceed with the procedure and signed the consent. IV was started, and vital signs were stable. PROCEDURE DESCRIPTION / TECHNIQUE: After getting consent, patient was taken to the OR and time out was completed. The patient was placed in the prone position on procedure table and a pillow was placed under the abdomen to reduce lumbar lordosis. The lumbosacral area was prepped and draped in the usual sterile fashion. Critical pause was taken. After injecting 5 mL of plain 1% lidocaine subcutaneously, under oblique view of the fluoroscope, a 22-gauge spinal needle was introduced under the tunnel view of the fluoroscope on the RIGHT side and the needle was advanced so that the tip of the needle was at the posterior inferior quadrant of the intervertebral foramen at the lateral view of the fluoroscope and in the lateral third of the facet column in the AP view of the fluoroscope. Negative CSF, negative blood, negative paresthesia. After needle position confirmation by AP and cross table lateral view, 3 mL of Isovue-M 200 contrast was injected under continuous fluoroscope. No contrast was noted in the intrathecal or intravascular space. The epidurogram was noted. Again after repeated negative aspiration 2.5 mL solution was injected which consists 1.5 mL of normal saline mixed with 1 mL of 20 mg dexamethasone. Needle was removed . At the end of the procedure, skin was cleansed, and bandages were applied. DISPOSITION / PLANS: No complication. The patient tolerated the procedure well. The patient was placed in a supine position and transferred to the recovery area in a stable condition for observation. There was no evidence of lower extremity motor or sensory deficit after the procedure. Patient was discharged from the recovery room after meeting discharge criteria. Home discharge instructions were given to the patient by the staff. The patient was reexamined prior to discharge.
[2024-03-17 10:08] VITALS: BP 130/81; PULSE 72; RESP 16
--- NOTE | 2024-03-17 11:12 | FL ---
EXAMINATION TYPE: FL guided pain mgmt statistic Intraoperative/procedural fluoroscopic services were provided. Total fluoroscopy time is 42.5 seconds with a total of 2 submitted images to PACS. Please s ee the operative/procedural note for further details. DAP: [id number] mGym2
== END 2024-03-17 10:16 | disposition home or self-care (01) ==
LOC: ORPAIN 07:46
PROVIDERS: ATTEND Pain Medicine Interventional Pain Medicine
DX: M51.16 Intervertebral disc disorders with radiculopathy, lumbar region (principal); M47.26 Other spondylosis with radiculopathy, lumbar region; Z88.8 Allergy status to other drugs, medicaments and biological substances
CPT/HCPCS: 64483; J1100; Q9966; J2795

== ENCOUNTER → 2024-04-27 | Outpatient (CLI) | payer BC ==
[2024-04-27 13:59] VITALS: BP 109/77; PULSE 75; RESP 16
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
== END ==
LOC: PNWHC3 13:42
PROVIDERS: ATTEND Specialist
DX: M51.36 Other intervertebral disc degeneration, lumbar region (principal); M47.816 Spondylosis without myelopathy or radiculopathy, lumbar region; F17.200 Nicotine dependence, unspecified, uncomplicated; Z88.8 Allergy status to other drugs, medicaments and biological substances
CPT/HCPCS: 80307; 99211

== ENCOUNTER → 2024-06-22 | Outpatient (CLI) | payer BC ==
[2024-06-22 14:37] VITALS: RESP 16
[2024-06-22 14:46] VITALS: BP 174/100; PULSE 78; TEMP 97.1
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
== END ==
LOC: PNWHC3 13:59
PROVIDERS: ATTEND Specialist
DX: M54.12 Radiculopathy, cervical region
CPT/HCPCS: 99211